=== PATIENT | female | born 1970 | race Caucasian/White ===

== ENCOUNTER 2020-02-19 04:00 | Emergency (ER) | payer SELFPAY | END 2020-02-19 04:54 | disposition home or self-care (01) | LOC: MADERS 04:00 | DX: K03.81 Cracked tooth (principal); K02.9 Dental caries, unspecified; F17.210 Nicotine dependence, cigarettes, uncomplicated; Z79.899 Other long term (current) drug therapy | CPT/HCPCS: 99283 ==

== ENCOUNTER 2021-04-23 03:50 | Emergency (ER) | payer OTHER, BC ==
[2021-04-23] MEDS ORDERED: Ondansetron ODT 4 MG TAB ONE (05:28)
[2021-04-23] MEDS ORDERED: Acetaminophen 500 MG TAB ONE (05:55)
[2021-04-23] MEDS ORDERED: Ibuprofen 200 MG TAB ONE (05:55)
== END 2021-04-23 07:06 | disposition home or self-care (01) ==
LOC: MADERS 03:50
DX: S06.0X9A Concussion with loss of consciousness of unspecified duration, initial encounter (principal); F17.210 Nicotine dependence, cigarettes, uncomplicated; Z79.899 Other long term (current) drug therapy; W01.0XXA Fall on same level from slipping, tripping and stumbling without subsequent striking against object, initial encounter
CPT/HCPCS: 70450; 70486; Q0162